=== PATIENT | female | born 1960 | race Caucasian/White ===

== ENCOUNTER 2022-01-05 01:12 | Day surgery (SDC) | payer OTHER, SELFPAY ==
[2021-12-19 10:11] VITALS: BMI 29.0
--- NOTE | 2022-01-05 07:06 | PM.HPGS ---
History of Present Illness History of Present Illness Consent: Risks, benefits, and alternatives have been discussed and questions answered. Patient agrees to proceed with procedure. Chief complaint: neoplasm screening Narrative: Svetlana Lam is a 61 year old female Referred for colon cancer screening. Her last colonoscopy was 11 years ago Review of Systems Review of Systems: All systems reviewed & are unremarkable except as noted in HPI and below PMFSH Past Medical History Medical History Anxiety Depression Hyperlipidemia Peripheral vascular disease of foot Social History Social History Smoking status: Never smoker Alcohol intake: current Substance use: never Substance use type: does not use Living arrangements: with family Spiritual care concerns: No Meds Home Medications and Allergies Home Medications Medication Instructions Recorded Confirmed Type cetirizine [Zyrtec] 10 mg PO QPM 12/19/21 12/19/21 History cholecalciferol (vitamin D3) 250 mcg PO DAILY 12/19/21 12/19/21 History [Vitamin D3] lurasidone [Latuda] 80 mg PO QPM 12/19/21 12/19/21 History lt-gd-vnwy-FA-Ca carb-vit K 1 tablet PO DAILY 12/19/21 12/19/21 History [One-A-Day Womens Formula] omega-3 acid ethyl esters 2 cap PO BID 12/19/21 12/19/21 History quetiapine 400 mg PO HS 12/19/21 12/19/21 History simvastatin 40 mg PO QPM 12/19/21 12/19/21 History venlafaxine 150 mg PO DAILY 12/19/21 12/19/21 History Allergies Allergy/AdvReac Type Severity Reaction Status Date / Time No Known Allergies Allergy Verified 01/05/22 07:40 Exam Const: General: alert Orientation/consciousness: patient oriented x3 Resp: Auscultation: clear to auscultation bilaterally Cardio: Rhythm: regular rhythm GI: GI Palp: Yes Soft to palpation and No Tenderness to palpation present (GI) Neuro: General: patient oriented x3 Assessment and Plan Assessment and plan (1) Colon cancer screening: Code(s): Z12.11 - Encounter for screening for malignant neoplasm of colon Status: Acute Assessment and Plan: Colonoscopy with possible biopsy or polypectomy or cautery or injection of substances.
[2022-01-05 07:41] VITALS: BP 143/65; PULSE 80; RESP 18; TEMP 36.6; O2SAT 98
[2022-01-05 07:42] VITALS: BMI 29.9
[2022-01-05] MEDS: LACTATED RINGERS 1,000 ML 150 ML IV CONT (07:52)
--- NOTE | 2022-01-05 07:56 | WPDANESEPPF ---
Anes - Initial Pre Proc Eval Procedure: Operation Date: 01/05/22 08:30 Proposed Procedures p Screening Colonoscopy - Hugo Argueta MD Date/Time: 01/05/22 07:56 Surgeon: Hugo Argueta MD Pre Op Diagnosis: neoplasm screening Patient Data Age: 61 Gender: F Height: 1.78 m Weight: 94.5 kg Last Vital Signs Temp 36.6 C 01/05/22 07:41 Pulse 80 01/05/22 07:41 Resp 18 01/05/22 07:41 BP 143/65 H 01/05/22 07:41 Pulse Ox 98 01/05/22 07:41 Allergies Allergy/AdvReac Type Severity Reaction Status Date / Time No Known Allergies Allergy Verified 01/05/22 07:40 Home Medications Medication Instructions Recorded Confirmed Type cetirizine [Zyrtec] 10 mg PO QPM 12/19/21 12/19/21 History cholecalciferol (vitamin D3) 250 mcg PO DAILY 12/19/21 12/19/21 History [Vitamin D3] lurasidone [Latuda] 80 mg PO QPM 12/19/21 12/19/21 History oy-fq-purp-FA-Ca carb-vit K 1 tablet PO DAILY 12/19/21 12/19/21 History [One-A-Day Womens Formula] omega-3 acid ethyl esters 2 cap PO BID 12/19/21 12/19/21 History quetiapine 400 mg PO HS 12/19/21 12/19/21 History simvastatin 40 mg PO QPM 12/19/21 12/19/21 History venlafaxine 150 mg PO DAILY 12/19/21 12/19/21 History Patient hx anesthesia problems: none Family hx anesthesia problems: none Results Review: All pre-operative results and documents have been reviewed as part of the pre-operative evaluation. [facility] Past Medical History Medical History (Updated 01/05/22 @ 07:57 by Ramírez Navarrete MD) Anxiety Depression Hyperlipidemia Peripheral vascular disease of foot Social History Social History Smoking status: Never smoker Alcohol intake: current Substance use: never Substance use type: does not use Living arrangements: with family Spiritual care concerns: No Anes - Eval Final PreProcedure Day of Procedure 01/05/22 07:56 Patient weight: obese Heart: regular rate and rhythm Lungs: clear to auscultation Airway: Mallampati scale class II Neurological: alert and oriented Last oral intake: >/= 8 hours ASA classification: III Emergent: no Anesthetic plan: proceed Anesthesia type and monitoring: general GIVS and standard monitoring Results Review: All pre-operative results and documents have been reviewed as part of the pre-operative evaluation. Informed Consent: The patient's anesthetic plan and its attendant risks and benefits were discussed with the patient/family/POA. Questions were solicited and answers provided to the satisfaction of the patient/family/POA.
[2022-01-05 08:38] VITALS: BP 113/62; PULSE 78; RESP 16; O2SAT 97
[2022-01-05 08:48] VITALS: BP 114/53; PULSE 82; RESP 24; O2SAT 100
[2022-01-05 08:58] VITALS: BP 136/69; PULSE 76; RESP 23; O2SAT 100
== END 2022-01-05 09:15 | disposition home or self-care (01) ==
PROVIDERS: Visit Provider Internal Medicine Gastroenterology
PROC: 0DJD8ZZ Inspection of Lower Intestinal Tract, Via Natural or Artificial Opening Endoscopic (ICD-10-PCS; CPT 45378; principal; 2022-01-05 08:30)
DX: Z12.11 Encounter for screening for malignant neoplasm of colon (principal); D12.5 Benign neoplasm of sigmoid colon; E78.5 Hyperlipidemia, unspecified; I73.9 Peripheral vascular disease, unspecified; F41.8 Other specified anxiety disorders; E66.9 Obesity, unspecified; Z68.29 Body mass index [BMI] 29.0-29.9, adult
CPT/HCPCS: 45385; 88305; J7120